=== PATIENT | female | born 1970 | race African-American/Black ===

== ENCOUNTER 2020-02-28 16:55 | Inpatient (IN) | payer OTHER ==
[~2020-02-28] VITALS: Ht 175.3 cm; Wt 80.7 kg
[2020-02-28 17:16] VITALS: BP 113/79
[2020-02-28 17:57] LABS: BASOPHILS 0.2 % (0.0-2.0); EOSINOPHILS 0.3 % (0.0-3.0); HEMATOCRIT 33.4 % (37.0-47.0); HEMOGLOBIN 10.6 gm/dL (12.0-15.0); MCH 21.1 pg (26.0-34.0); MCHC 31.7 g/dL (28.0-37.0); MCV 66.7 fL (80.0-100.0); MONOCYTES 10.7 % (1.0-8.0); PLATELET COUNT 225 thou/uL (150-400); POLYS 80.8 % (36.0-66.0); RBC 5.01 mil/uL (4.20-5.00); RDW 17.9 % (10.5-14.5); WBC 14.9 thou/uL (4.0-11.0)
[2020-02-28] MEDS ORDERED: NOHOMEMEDICATIONS (18:31)
[2020-02-28 18:32] LABS: ANION GAP 15 mmol/L (7-16); BUN 16 mg/dL (7-18); CALCIUM 10.4 mg/dL (8.5-10.1); CHLORIDE 99 mmol/L (98-107); CO2 22 mmol/L (21-32); CREATININE 0.8 mg/dL (0.6-1.0); GLUCOSE 103 mg/dL (74-106); POTASSIUM 3.4 mmol/L (3.5-5.1); SODIUM 136 mmol/L (136-145)
[2020-02-28 18:39] LABS: ALBUMIN 4.4 g/dL (3.4-5.0); SALICYLATE < 2.8 mg/dL (2.8-20.0); SGOT 24 U/L (15-37); SGPT 32 U/L (30-65); TOTAL BILIRUBIN 0.4 mg/dL (0.2-1.0); TOTAL PROTEIN 8.8 g/dL (6.4-8.2)
[2020-02-28 18:41] LABS: URINE BILIRUBIN NEGATIVE (Negative); URINE BLOOD TRACE (Negative); URINE CLARITY CLEAR; URINE COLOR YELLOW; URINE GLUCOSE-RANDOM* NEGATIVE (Negative); URINE KETONES NEGATIVE (Negative); URINE LEUKOCYTES-REFLEX 1+ (Negative); URINE NITRITE-REFLEX POSITIVE (Negative); URINE PROTEIN (DIPSTICK) TRACE (Negative)
[2020-02-28 18:43] LABS: ANISOCYTOSIS 1+; HYPOCHROMASIA 2+; MICROCYTES 2+
[2020-02-28 18:49] LABS: AMP/METHAMP POSITIVE (Negative); BARBITURATES Negative (Negative); BENZODIAZEPINES Negative (Negative); COCAINE Negative (Negative); METHADONE Negative (Negative); OPIATES Negative (Negative); PCP Negative (Negative)
[2020-02-28 19:02] LABS: SQUAMOUS >10 Many /LPF (0-3)
[2020-02-28 19:03] LABS: BACTERIA-REFLEX >30 Many /HPF (None Seen); CASTS None Seen /LPF (None Seen); CRYSTALS None Seen /LPF (None Seen); URINE RBC 0-2 Rare /HPF (0-2)
[2020-02-28 22:36] VITALS: BP 130/58
[2020-02-28 22:48] VITALS: BP 130/67
[2020-02-28 23:45] VITALS: BP 121/82
[2020-02-29] MEDS ORDERED: PROZAC20 M1 PO (00:08)
--- NOTE | 2020-02-29 03:10 | NUR ---
ASSUMED CARE OF PT AT 2330 FROM ED. PT IS AOX3 AND WAS ANXIOUS UPON ARRIVAL ON THE FLOOR. PT HAD URINARY URGENCY AND WAS INCT. PT WAS ORIENTED TO THE UNIT AND HER ROOM. SI PRECAUTIONS IN PLACE WITH 1:1 SITTER. PT WAS TACHYCARDIC AND HAD A TEMP OF 99.7. OTHER VSS. PT DENIES PAIN, NAUSEA OR SOA AT THE TIME OF ASSESSMENT. PT DENIES SI OR HI AT THE TIME OF ASSESSMENT. PT WAS ABLE TO ANSWER ALL ADMISSION RELATED QUESTIONS BUT INFORMATION MAY NOT BE ACCURATE PT MAY STILL BE DELUSIONAL. NO S/S OF ACUTE DISTRESS. WILL CONTINUE TO MONITOR.
[2020-02-29 04:08] VITALS: BP 123/72
[2020-02-29 06:10] LABS: HEMATOCRIT 29.7 % (37.0-47.0); HEMOGLOBIN 9.3 gm/dL (12.0-15.0); MCH 21.1 pg (26.0-34.0); MCHC 31.3 g/dL (28.0-37.0); MCV 67.5 fL (80.0-100.0); RBC 4.4 mil/uL (4.20-5.00); RDW 17.9 % (10.5-14.5); WBC 15.7 thou/uL (4.0-11.0)
[2020-02-29 06:25] LABS: CALCIUM 9.8 mg/dL (8.5-10.1); CREATININE 0.7 mg/dL (0.6-1.0); POTASSIUM 3.5 mmol/L (3.5-5.1)
--- NOTE | 2020-02-29 11:39 | NUR ---
INITIAL ASSESSMENT: Received consult. JALIL reviewed chart and spoke with nursing and attending physician. Pt was admitted from home due to SI/delusions. Pt placed in Enhanced Isolation to r/o COVID-19. Pt has 1:1 sitter at bedside. Awaiting psych consult. Per chart, pt has hx of bipolar disorder and has not been taking her meds. Pt is on IV abx. SW unable to speak with pt as she does not have a phone in her room. Pt does not have health insurance. No contacts listed for pt. JALIL is following to assist as needed with discharge planning.
[2020-02-29 15:39] VITALS: BP 109/66
--- NOTE | 2020-02-29 17:04 | NUR ---
PT REMIANS IN SI PRECAUTIONS. DR. LIVINGSTON CONSULTED ON PATIENT. PATIENT CONTINUES TO HAVE THOUGHTS OF SI. PARANOID AT TIMES. OTHERWISE RESTING IN BED COMFORTABLY AND VOICES NO NEEDS OR CONCERNS. NEW IV STARTED BY IV NURSE. DISCONTINUED ENHANCED PRECAUTIONS. PT WILL TRANSFER TO ROOM 207.
[2020-02-29 18:16] VITALS: BP 95/73
[2020-02-29 19:15] VITALS: BP 113/68
[2020-03-01 06:29] VITALS: BP 110/63
[2020-03-01 06:32] LABS: ABSOLUTE NEUTROPHILS 6.3 thou/uL (1.4-8.2); BASOPHILS 0.6 % (0.0-2.0); EOSINOPHILS 1.1 % (0.0-3.0); HEMATOCRIT 30.8 % (37.0-47.0); HEMOGLOBIN 9.6 gm/dL (12.0-15.0); LYMPHOCYTES 16.4 % (24.0-44.0); MCH 21.4 pg (26.0-34.0); MCHC 31.2 g/dL (28.0-37.0); MCV 68.5 fL (80.0-100.0); MONOCYTES 9.8 % (1.0-8.0); PLATELET COUNT 205 thou/uL (150-400); POLYS 72.1 % (36.0-66.0); RBC 4.49 mil/uL (4.20-5.00); RDW 17.8 % (10.5-14.5); WBC 8.7 thou/uL (4.0-11.0)
[2020-03-01 07:17] VITALS: BP 110/67
--- NOTE | 2020-03-01 07:42 | EKG ---
[facility] [place] [address] ELECTROCARDIOGRAM REPORT Name: TRAE SPENCE Room #: 207-P ADM IN M.R.#: [id number] Admission: 02/28/20 Attend Phys: Kamari Zaman MD Discharge: Date of : 68 Report #: [id number] THIS REPORT FOR: cc: SPENCER - Pauline family physician/PCP SPENCER - No family physician/PCP Padilla Conway MD [facility] ~ THIS REPORT FOR: //name// [facility] Test Date: 2020-02-29 Test Time: 19:43:40 Pat Name: TRAE SPENCE Department: Room: [facility] 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
--- NOTE | 2020-03-01 11:35 | NUR ---
JALIL reviewed chart and spoke with nursing, attending physician and psychiatrist. Pt was transferred to CCU from 3. Pt has 1:1 sitter at bedside due to SI/psychosis. Recommendation made for pt to be transferred to inpt psych when medically stable. Pt has been febrile and is on IV abx. Repeat COVID test ordered today. JALIL met with pt at bedside. Introduced role of SW. Pt is alert/orientated. SW discussed discharge to inpt psych facility with pt. Pt is agreeable with plan and states she has not been anywhere in the past for inpt treatment. Pt asks that her family not be contacted or updated. No family or contacts listed for pt. SW to send referrals to inpt psych facilities when pt is medically stable for transfer. [facility] has taken a Medicaid application and will submit on pt's behalf. JALIL is following to assist as needed with discharge planning.
[2020-03-01 13:30] VITALS: BP 120/75
[2020-03-01 15:27] VITALS: BP 133/77
--- NOTE | 2020-03-01 17:58 | NUR ---
ASSESSMENT DOCUMENTED, AND REMAIND ON SI PRECAUTIONS. LOW GRADE FEVER, AND OTHER VSS. ST WITH ACTIVITIES. PATIENT PULLED IV OUT, AND STATED THAT THE BAD SPIRITS ARE BOTHERING HER. IN BED SLEEP MOST OF THE DAY. AND WILL COTNINUE WITH POC.
[2020-03-01 19:53] VITALS: BP 110/54
[2020-03-02 04:25] VITALS: BP 103/63
--- NOTE | 2020-03-02 05:14 | NUR ---
ASSESSMENT DOCUMENTED.PT BEEN RESTING IN NO ACUTE DISTRESS.A/OX4.VSS,TACHYCARDIAC W/ACTIVITIES W/O SHORTNESS OF BREATH.PT HAS FREQUENT PRODUCTIVE COUGH.REFUSED COVID TEST STATING SHE ALREADY HAD TWO TEST AND SHE IS NOT GOING TO DO IT AGAIN.EDUCATED ON IMPORTANCE OF PERFORMING THE TEST,ACKNOWLEDGE IT BUT STILL DECLINED.WILL TRY AGAIN TODAY.SI PRECAUTION INPLACE,SITTER IN THE ROOM.NO OTHER CONCERNS NOTED OR REPORTED.
[2020-03-02 08:10] LABS: BASOPHILS 0.6 % (0.0-2.0); EOSINOPHILS 1.4 % (0.0-3.0); HEMATOCRIT 31.7 % (37.0-47.0); HEMOGLOBIN 10.1 gm/dL (12.0-15.0); LYMPHOCYTES 19.1 % (24.0-44.0); MCH 21.4 pg (26.0-34.0); MCHC 31.8 g/dL (28.0-37.0); MCV 67.3 fL (80.0-100.0); MONOCYTES 11.3 % (1.0-8.0); PLATELET COUNT 270 thou/uL (150-400); POLYS 67.6 % (36.0-66.0); RBC 4.71 mil/uL (4.20-5.00); RDW 17.9 % (10.5-14.5); WBC 5.9 thou/uL (4.0-11.0)
[2020-03-02 08:18] VITALS: BP 107/73
[2020-03-02 12:00] LABS: ANISOCYTOSIS 1+; HYPOCHROMASIA 2+; MICROCYTES 1+; PLATELET ESTIMATE NORMAL
[2020-03-02 12:25] VITALS: BP 112/75
--- NOTE | 2020-03-02 13:59 | NUR ---
SW reviewed chart and spoke with attending physician and psychiatrist. Pt is medically stable for transfer to an inpt psych facility. Pt has 1:1 sitter at bedside. JALIL contacted various inpt psych facilities: [facility]: spoke with Babak in bed placement. Faxed info for review. [facility]: Faxed info for review. No beds currently available. [facility]: Faxed info for review. No beds currently available. [facility]: Faxed info for review. [facility]: Not accepting any referrals at this time per Winnie in intake. [facility] [place]: Spoke with Mony in intake. Faxed info for review [facility] in [place]: left voice message on bed placement pager. [facility]: No beds available. JALIL is follwoing to assist as needed [facility] discharge planning.
[2020-03-02 16:15] VITALS: BP 128/82
--- NOTE | 2020-03-02 17:50 | NUR ---
ASSUMED CARE AT SHIFT CHANGE, VSS AND AFEBRILE. TACHYCARDIAC WITH AMBULATION, AND DENIES ANY SOB. NO SI VERBALIZED BY PATIENT, 1:[address] FOR SAFETY AND WILL CONTINUE TO MONITOR PATIENT.
[2020-03-02 19:23] VITALS: BP 115/69
[2020-03-03 04:43] VITALS: BP 102/58
--- NOTE | 2020-03-03 04:50 | NUR ---
PT RESTING QUIETLY THROUGH SHIFT, REMAINS ON RA WITH COARSE COUGH, VSS, NO C/O PAIN, NO IV ACCESS, SITTER AT BEDSIDE OFFERING 1:1 SUPERVISION,
--- NOTE | 2020-03-03 05:33 | NUR ---
PT RESTING QUIETLY IN BED THRU THE NOC, VSS, HR ELEVATED WITH ACTIVITY, NO C/O PAIN, UP ADLIB TO BR, SITTER PROVIDING 1:1 CARE AT BEDSIDE, WILL CON'T TO MONITOR PER PPOC.
[2020-03-03 07:18] VITALS: BP 102/71
--- NOTE | 2020-03-03 13:04 | NUR ---
cm f/u with [facility]; referral still pending review cm sent clinicals to [facility], as they may have a bed avail later today.
[2020-03-03 13:45] VITALS: BP 128/83
--- NOTE | 2020-03-03 15:06 | NUR ---
pt's bedside rn, richa, informed cm that [facility] called and has denied pt.
--- NOTE | 2020-03-03 16:50 | NUR ---
SW reviewed chart. Pt remains medically stable for transfer to an inpt psych facility. SW contacted [facility] facilities: [facility]: Declined pt for admission [facility]: Spoke with Kristin. Pt has been declined. [facility]: Spoke with Layne and faxed info for review. ( ) [facility]: Paged bed coordinator ([phone]) [facility]: Spoke with Kristin. Not accepting pts today. Requested call on Friday to check status ( ) [facility]: Spoke with Mary. Faxed info for review. ( ) [facility]: left voice message for bed coordinater (PHone: [phone]) [facility]: Spoke with Carlotta. No beds available at the current time. Requested to check bed status later this evening or tomorrow. ( ) [facility]: Not accepting any new referrals until midnight. ( FaxL [phone]) [facility]: Not accepting adults in their behavioral health unit at this time. [facility]: Not accepting any referrals/admissions until Friday. Affidavit is on pt's chart. Will need chart copied once pt has been accepted to a facility. [facility] and EMTALA form placed on pt's chart. SW is following to assist as needed with discharge planning.
--- NOTE | 2020-03-03 18:16 | NUR ---
ASSUMED CARE PT SHIFT CHANGE. ASSESSMENT CHARTED. PT ALERT, ORIENTED. SITTER IN ROOM WITH PT DURING SHIFT. PT REMAINED CALM. DENIES PAIN. PT UP TO BATHROOM TOLERATING WELL. HR ELEVATED WITH ACTVITY AND AT REST. PHYSICIAN NOTIFIED. ORDERS RECEIVED. PT AFEBRILE, ENCOURAGED PT TO DRINK FLUIDS PER CARDIOLOGY RECOMMENDATION. HOSPITALIST NOTIFIED NO NEW ORDERS RECEIVED. PT CURRENTLY RESTING IN BED WITH SITTER IN ROOM. WILL CONT TO MONITOR. WILL PASS ON REPORT TO ANGE RN.
[2020-03-03 18:46] LABS: CALCIUM 10.3 mg/dL (8.5-10.1); CREATININE 0.7 mg/dL (0.6-1.0); POTASSIUM 3.9 mmol/L (3.5-5.1)
[2020-03-03 20:15] VITALS: BP 142/87
--- NOTE | 2020-03-04 04:49 | NUR ---
Assumed pt care at 1900. Pt is alert and oriented. Pt is a sucidial patient. Sitter present in room. Pt is stable. Pt at the beginning of the shift had some delusional episode. No aggressive behavior. Assessment completed and documented. Scheduled meds administered to pt. Continue to monitor. No acute events. No further needs at this time.
[2020-03-04 05:24] VITALS: BP 110/75
[2020-03-04 07:35] VITALS: BP 100/66
[2020-03-04 08:21] LABS: ABSOLUTE NEUTROPHILS 3.6 thou/uL (1.4-8.2); BASOPHILS 0.8 % (0.0-2.0); EOSINOPHILS 1.9 % (0.0-3.0); HEMATOCRIT 36.5 % (37.0-47.0); HEMOGLOBIN 11.4 gm/dL (12.0-15.0); LYMPHOCYTES 22.2 % (24.0-44.0); MCH 21.2 pg (26.0-34.0); MCHC 31.4 g/dL (28.0-37.0); MCV 67.6 fL (80.0-100.0); MONOCYTES 11.2 % (1.0-8.0); POLYS 63.9 % (36.0-66.0); RDW 18.6 % (10.5-14.5); WBC 5.7 thou/uL (4.0-11.0)
[2020-03-04 08:35] LABS: PLATELET COUNT 373 thou/uL (150-400)
[2020-03-04 08:36] LABS: ALBUMIN 2.9 g/dL (3.4-5.0); CALCIUM 10.5 mg/dL (8.5-10.1); CREATININE 0.6 mg/dL (0.6-1.0); POTASSIUM 4.1 mmol/L (3.5-5.1); TOTAL BILIRUBIN 0.2 mg/dL (0.2-1.0); TOTAL PROTEIN 7.9 g/dL (6.4-8.2)
--- NOTE | 2020-03-04 09:29 | EKG ---
[facility] [place] [address] ELECTROCARDIOGRAM REPORT Name: TRAE SPENCE Room #: 207-P ADM IN M.R.#: [id number] Admission: 02/28/20 Attend Phys: Kamari Zaman MD Discharge: Date of : 68 Report #: [id number] THIS REPORT FOR: cc: SPENCER Carpenter family physician/PCP SPENCER Carpenter family physician/PCP Dwayne Rizzo MD [facility] THIS REPORT FOR: //name// [facility] Test Date: 2020-03-03 Test Time: 18:16:37 Pat Name: TRAE SPENCE Department: Room: 207 P Gender: F Clinic Manager: SYKLAR : 1970 Requested By: Kamari Zaman Order Number: [id number] MD: Dwayne Rizzo Measurements Intervals [place] Rate: 109 P: 70 OR: 168 QRS: 71 QRSD: 83 T: 40 QT: 310 QTc: 418 Interpretive Statements Sinus tachycardia Compared to ECG 02/29/2020 19:43:40 No significant changes Electronically Signed On 03-04-2020 9:29:27 CDT by Dwayne Rizzo [email or web address] <ELECTRONICALLY SIGNED> By: Dwayne Rizzo MD, FACC 03/04/20 0929 15 15 Dwayne Rizzo MD, [facility] /EPI
[2020-03-04 15:08] VITALS: BP 96/64
--- NOTE | 2020-03-04 17:52 | NUR ---
ASSESSMENTS AND INTERVENTIONS DOCCUMENTED. NO MAJOR CONCERNS THIS SHIFT. PATIENT RESTING THROUGH OUT SHFIT. PATIENT WONDERING WHEN SHE WILL BE DISCHARGED. RN DISCUSSING WITH PATIENT THAT CASE MANAGEMENT IS AWAITIING PLACEMENT FOR PSYCH FACIILLITY. PATIENT IS PROGRESSING TOWARDS GOALS AT THIS TIME EVIDENCE BY REMAINING CALM THROUGH OUT SHIFT WITH NO COMPLAINTS OF HALUCINATIONS.
[2020-03-04 20:23] VITALS: BP 107/64
--- NOTE | 2020-03-05 03:39 | NUR ---
Assumed pt care at 1900. Pt is alert. No sign of distress noted. Sitter at bedside. Denies any needs. Assessment completed and documented. Pt s is stable throughout the night. Denies any pain. Scheduled meds administered to pt. No acute events overnight. Pendign placement. Continue to monitor. No further needs at this time.
[2020-03-05 06:20] VITALS: BP 100/64
[2020-03-05 08:52] VITALS: BP 95/63
--- NOTE | 2020-03-05 09:40 | NUR ---
RESTING, AWAKENS EASILY. DENIES ANY DELUSIONS, HEARING VOICES, HALLUCINATIONS AT THIS TIME. DENIES THOUGHTS OF HURTING OR HARMING HERSELF. PER PHYSICIAN DR. LIVINGSTON, PT TO BE TRANSFERRED TO INPATIENT PSYCH FACILITY AND NOT TO GO HOME. CONTINUING WITH 1:1 SITTER FOR SUICIDIAL IDEATION FOR PT SAFETY.
--- NOTE | 2020-03-05 10:40 | NUR ---
REPORT GIVEN TO DWAIN LAIRD ON 4TH FLOOR. PT TRANSFERRING TO ROOM #457.
--- NOTE | 2020-03-05 11:37 | NUR ---
TRANSFERRED TO FLOOR PER BED WITH ASSISTANCE OF TECH.
--- NOTE | 2020-03-05 12:42 | NUR ---
Received pt from [address] [place] [address], pt has no IV and as per nurse this was not indicated and MD aware, though no documentation from any MD is documented, informed attending MD today. Was advised by the nurse as well that pt has a backpack at the ER that has not been brought up and accounted for. I called security to keep the backpack since pt is on SI and no belongings are to be kept in the room as per protocol since pt is on SI and has a sitter, pt is aware where the backpack is and to retrieve this upon DC, note is placed at the front of the chart as well. Denies any ahllucinations and delusions at this time, is aware of why she is here and mentioned she is fine now and is conlvinced that she will be going home tomorrow. Currently on 1:1 with a sitter. VS stable, POC followed witn no signs or verbalizations of distress.
[2020-03-05 17:55] VITALS: BP 106/72
[2020-03-05 19:11] VITALS: BP 109/71
--- NOTE | 2020-03-06 02:33 | NUR ---
ASSUMED CARE OF PT AT 1900. PT IS A/O X4 AND IS UP WITH SBA WITH SITTER AT BEDSIDE. PT DENIES ANY C/O HALLUCINATIONS OR DELUSIONS AT THIS TIME. VSS. AFEBRILE. NO C/O PAIN OR DISCOMFORT. PT IS CURRENTLY LYING IN HER BED AND APPEARS TO BE SLEEPING. SUICIDE PRECAUTIONS IN PLACE. WILL CONTINUE TO MONITOR.
--- NOTE | 2020-03-06 08:59 | NUR ---
Assess due to length of stay. Admit with SI, pneumonia, sepsis. +for hallucinations, delusions, followed by psych. Eating >75% meals, no reported wt loss. Awaiting inpatient psych bed for discharge. Low nutrition risk
[2020-03-06 10:49] VITALS: BP 130/82
--- NOTE | 2020-03-06 17:05 | NUR ---
PT A&OX4, VSS, DENIES PAIN. PATIENT CONTINUES TO HAVE SI/HI AND HALLUCINATIONS. PATIENT HAS SITTER. NO SIGNS OF DISTRESS. WILL CONTINUE TO MONITOR.
[2020-03-06 17:42] VITALS: BP 118/72
[2020-03-06 19:43] VITALS: BP 103/62
--- NOTE | 2020-03-07 05:57 | NUR ---
Assumed pt care at 1900. Pt A/OX4,VSS. Denied pain on assessment, pt had an episode of large emesis per sitter but declined need for medication stated she felt better afterwards. Denies SI/HI,mood changes noted on and off when conversing. Sitter at the bedside for safety. Will continue to monitor pt.
[2020-03-07 07:15] VITALS: BP 106/67
[2020-03-07 10:53] LABS: HEMATOCRIT 33.4 % (37.0-47.0); HEMOGLOBIN 10.5 gm/dL (12.0-15.0); MCH 21.4 pg (26.0-34.0); MCHC 31.3 g/dL (28.0-37.0); MCV 68.3 fL (80.0-100.0); RBC 4.88 mil/uL (4.20-5.00); RDW 18.6 % (10.5-14.5); WBC 4.8 thou/uL (4.0-11.0)
[2020-03-07 11:06] LABS: CALCIUM 10.1 mg/dL (8.5-10.1); CREATININE 0.6 mg/dL (0.6-1.0); POTASSIUM 3.8 mmol/L (3.5-5.1)
--- NOTE | 2020-03-07 11:17 | NUR ---
patient a/ox4, no complaints of pain, cough, nausea or vomiting as previously seen with patient. vital signs are stable and patient is resting. She has SI precautions in place and has a sitter at bedside. Chest XR performed this morning, lab leny blood, urine analysis to be collected. patient states her doctor is sending her home today, but we are looking for placement for inpatient psychiatric stay. pt belongings with security. pt watching tv and laying supine most of morning.
--- NOTE | 2020-03-07 11:58 | NUR ---
I have reviewed the student's documentation.
--- NOTE | 2020-03-07 13:30 | NUR ---
[facility]: Declined pt for admission [facility]: Spoke with Kristin. Pt has been declined. [facility]: Spoke with Layne and faxed info for review. ( ) called 03/07 faxed referral again this afternoon [facility]: Paged bed coordinator ([phone]) called 1:19 [facility]: ( ) CALLED THEY ARE AT CAPACITY 1:36 [facility]: Spoke with ANGELA Faxed OVER UPDATED LABS. ( ) [facility]: left voice message for bed coordinater (PHone: [phone]) [facility]: CALLED AT 1:23 No beds available at the current time. Requested to check bed status later this afternoon. ( ) [facility]: DECLINED 03/06 ( ) [facility]: Not accepting adults in their behavioral health unit at this time. [facility]: CALLED 1:[address]ER[address] CM UPDATED DR. LIVINGSTON. CM TO FOLLOW INDICATED WITH DC PLANNING.
[2020-03-07 14:30] VITALS: BP 118/52
[2020-03-07] MEDS ORDERED: OLANZAPINE ODT5 MG PO (17:03)
[2020-03-07 17:35] VITALS: BP 106/67
--- NOTE | 2020-03-07 20:24 | NUR ---
Received awake on bed. Due medications given as prescribed. On MS, not on telemetry; no complains of chest pain, crushing sensation and heaviness. On room air. Vital signs stable. On regular diet, tolerating well; no nausea, no vomiting and no abdominal pain noted. Continent of bowel and bladder, able to go to the toilet. No IV noted. Up ad tank. Assisted in ADLs. Still a/w inpatient psych. With sitter at bedside; suicide protocol observed. Pt seen and examined by Dr Smith- CBC, BMP, chest xray and urinalysis ordered- a/w specimen to be obtained. Pt seen and examined by Dr Michaud at 1730- discharge orders made. Discharge instructions, follow up schedule, contact numbers and prescription given and instructed. No IV noted. supervisor functional testing informed re: cab voucher. Sitter went down with patient to claim belongings from security and also facilitate cab voucher. Pt discharged from the unit via wheelchair with her personal belongings. Discharged patient.
== END 2020-03-07 18:35 | disposition home or self-care (01) | DRG 871 ==
LOC: ER 16:55 → EROBS 22:04 → 3W 22:04 → 2N 02-29 17:55 → 4W 03-05 11:21
PROVIDERS: Internal Medicine; Nurse Practitioner Family; Physician Assistant; Psychiatry & Neurology Psychiatry; ADMIT Hospitalist; ATTEND Hospitalist
DX: A41.9 Sepsis, unspecified organism (principal); J18.9 Pneumonia, unspecified organism; N39.0 Urinary tract infection, site not specified; R45.851 Suicidal ideations; B96.20 Unspecified Escherichia coli [E. coli] as the cause of diseases classified elsewhere; F12.10 Cannabis abuse, uncomplicated; F15.10 Other stimulant abuse, uncomplicated; F99 Mental disorder, not otherwise specified; F31.9 Bipolar disorder, unspecified; G89.29 Other chronic pain; F41.9 Anxiety disorder, unspecified; F17.210 Nicotine dependence, cigarettes, uncomplicated; Z20.828 Contact with and (suspected) exposure to other viral communicable diseases; Z79.899 Other long term (current) drug therapy; Z88.0 Allergy status to penicillin
CPT/HCPCS: 10047; 10081; 10879

== ENCOUNTER 2020-03-26 02:01 | Emergency (ER) | payer OTHER ==
[~2020-03-26] VITALS: Ht 175.3 cm; Wt 81.7 kg
--- NOTE | ~2020-03-26 | EMS ---
[address] [address] EMS Patient Care Report Name: TRAE SPENCE Room #: PRE M.R.#: [id number] Admission: Attend Phys: Discharge: Date of : 68 Report #: [id number] THIS REPORT FOR: //name// Report Transmitted: 03/26/2020 01:57 EMS Care Summary [place], [place] Incident [id number] @ 03/26/2020 01:36 Incident Location [address] [place] [address] Patient PASAH SPENCE Female, 49 Years 1970 Patient Address [address] [place] [address] Patient History Hypertension (HTN), Patient Allergies No known allergies, Patient Medications None Reported, Chief Complaint SHORTNESS OF BREATH Disposition Transported No Lights/Kaycee Dispatch Reason Breathing Problem Transported To [facility] Narrative DISPATCHED EMERGENCY TO THE SCENE OF A REPORTED BREATHING PROBLEM. UPON ARRIVAL, FOUND PATIENT SITTING OUTSIDE THE BUSINESS, ALERT AND ORIENTED X4, COMPLAINING OF DIFFICULTY BREATHING. PATIENT STATES SHE WAS DIAGNOSED WITH PNEUMONIA A WEEK AGO AND IS UNABLE TO AFFORD HER MEDICATION. PATIENT DENIES [address] [address] EMS Patient Care Report Name: TRAE SPENCE Room #: PRE Johnny.#: [id number] Admission: Attend Phys: Discharge: Date of : 68 Report #: [id number] ANY CHEST PAIN. PATIENT PRESENTS WITHOUT LABORED BREATHING. PATIENT IS ASSISTED TO THE AMBULANCE, LOADED TO THE COT, AND SECURED. VITAL SIGNS ASSESSED. LUNG SOUNDS CLEAR. PATIENT TRANSPORTED IN A POSITION OF COMFORT TO [facility] WITHOUT INCIDENT OR CHANGE IN CONDITION. VITAL SIGNS MONITORED DURING TRANSPORT. PATIENT CARE TRANSFERRED TO ED STAFF. Initial Vitals @01:50P: 70,R: 18,BP: 184/90,Pain: 0/10,GCS: 15,SpO2: 97,Revised Trauma: 12, @01:55P: 80,R: 18,BP: 136/74,Pain: 0/10,GCS: 15,SpO2: 97,Revised Trauma: 12, Assessments @01:46MENTAL:Person Oriented,Time Oriented,Place Oriented,Event Oriented,SKIN:HEENT:Head/Face: No Abnormalities,Neck/Airway: No Abnormalities,LUNG SOUNDS:General: No Abnormalities,ABDOMEN:General: No Abnormalities,PELVIS//GI:No Abnormalities,EXTREMITIES:Capillary Refill: Right Upper: < 2 Sec,Left Arm: No Abnormalities,Right Arm: No Abnormalities,Left Leg: No Abnormalities,Right Leg: No Abnormalities,PULSE:Radial: 2+ Normal,NEURO:No Abnormalities, Impression Shortness of breath Procedures @01:46ALS AssessmentResponse: UnchangedSucceeded Timeline 01:35,Call Received 01:35,Dispatch Notified 01:36,Dispatched 01:38,En Route 01:44,On Scene 01:46,At Patient 01:46,ALS Assessment,Response: UnchangedSucceeded, 01:50,BP: 184/90 M,PULSE: 70,RR: 18 R,SPO2: 97 Ox,ETCO2: ,BG: ,PAIN: 0,GCS: 15, 01:52,Depart Scene 01:55,BP: 136/74 M,PULSE: 80,RR: 18 R,SPO2: 97 Ox,ETCO2: ,BG: ,PAIN: 0,GCS: 15, 01:58,At Destination 02:07,Call Closed Disclaimer v1.1 Copyright 2020 [employer] This EMS Care Summary contains data elements from the applicable legal record (which may be displayed differently). It is designed to provide pertinent information for the following purposes: continuity of care, clinical quality, and state data reporting. The complete legal record is available to ED staff and administrators of the receiving hospital in [employer] Patient Tracker. All data [facility] [address] [place] [address] EMS Patient Care Report Name: TRAE SPENCE Room #: [facility] KT Mitchell#: [id number] Admission: Attend Phys: Discharge: Date of : 68 Report #: [id number] is provided "as is."
[~2020-03-26 02:01] MED LIST: NOHOMEMEDICATIONS; OLANZAPINE ODT5 MG PO; PROZAC20 M1 PO
[2020-03-26 02:55] LABS: ABSOLUTE NEUTROPHILS 5.6 thou/uL (1.4-8.2); BASOPHILS 0.6 % (0.0-2.0); EOSINOPHILS 0.7 % (0.0-3.0); HEMOGLOBIN 9.9 gm/dL (12.0-15.0); LYMPHOCYTES 15.5 % (24.0-44.0); MCH 21.6 pg (26.0-34.0); MCV 69.6 fL (80.0-100.0); MONOCYTES 8.5 % (1.0-8.0); PLATELET COUNT 228 thou/uL (150-400); POLYS 74.7 % (36.0-66.0); RBC 4.59 mil/uL (4.20-5.00); RDW 20.9 % (10.5-14.5); WBC 7.6 thou/uL (4.0-11.0)
[2020-03-26 02:58] LABS: CALCIUM 9.9 mg/dL (8.5-10.1); CREATININE 0.7 mg/dL (0.6-1.0); POTASSIUM 3.8 mmol/L (3.5-5.1)
[2020-03-26 03:03] LABS: ALBUMIN 3.3 g/dL (3.4-5.0); TOTAL BILIRUBIN 0.3 mg/dL (0.2-1.0); TOTAL PROTEIN 7.2 g/dL (6.4-8.2)
[2020-03-26] MEDS ORDERED: ZITHROMAX250 MG PO (03:30)
[2020-03-26 03:39] LABS: ANISOCYTOSIS 2+; HYPOCHROMASIA 2+; MICROCYTES 2+; POLYCHROMASIA 1+
[2020-03-26 03:45] VITALS: BP 130/89
--- NOTE | 2020-03-26 11:19 | EKG ---
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1970 Requested By: Mario Osborne Order Number: [id number] MD: Alexis Gonzalez Measurements Intervals [place] Rate: 67 P: 63 [place]: 194 QRS: 79 QRSD: 90 T: 60 QT: 383 QTc: 405 Interpretive Statements Sinus rhythm Anteroseptal infarct, age indeterminate Compared to ECG 03/03/2020 18:16:37 Myocardial infarct finding now present Sinus tachycardia no longer present Electronically Signed On 03-26-2020 11:19:18 CDT by Alexis Gonzalez [email or web address] <ELECTRONICALLY SIGNED> By: Alexis Gonzalez MD 03/26/20 1119 0255 0255 Alexis Gonzalez MD /EPI
== END 2020-03-26 03:33 | disposition home or self-care (01) ==
LOC: ER 02:01
PROVIDERS: Emergency Medicine
DX: J18.9 Pneumonia, unspecified organism (principal); G89.29 Other chronic pain; M54.9 Dorsalgia, unspecified; F17.210 Nicotine dependence, cigarettes, uncomplicated; Z79.899 Other long term (current) drug therapy; Z88.0 Allergy status to penicillin

== ENCOUNTER → 2020-07-14 | Emergency (ER) | payer OTHER ==
[~2020-07-14] VITALS: Ht 175.3 cm; Wt 81.7 kg
[~2020-07-14] MED LIST changes: +TRAMADOL 50 MG50 MG PO; +ZITHROMAX250 MG PO
[2020-07-14 15:09] VITALS: BP 137/89
== END ==
LOC: ER 13:12
DX: S82.62XA Displaced fracture of lateral malleolus of left fibula, initial encounter for closed fracture (principal); G89.29 Other chronic pain; F17.210 Nicotine dependence, cigarettes, uncomplicated; Z79.2 Long term (current) use of antibiotics; Z88.0 Allergy status to penicillin; X50.1XXA Overexertion from prolonged static or awkward postures, initial encounter; Y93.89 Activity, other specified; Y92.89 Other specified places as the place of occurrence of the external cause; Y99.9 Unspecified external cause status

== ENCOUNTER 2021-03-22 00:23 | Emergency (ER) | payer OTHER ==
[~2021-03-22] VITALS: Ht 175.3 cm; Wt 81.7 kg
--- NOTE | ~2021-03-22 | EMS ---
[address] [address] EMS Patient Care Report Name: TRAE SPENCE Room #: DEP KT Mitchell#: [id number] Admission: 03/22/21 Attend Phys: Discharge: 03/22/21 Date of : 68 Report #: [id number] THIS REPORT FOR: //name// Report Transmitted: 03/26/2021 08:33 EMS Care Summary [place], [place]/[facility] Incident [id number] @ 03/21/2021 23:54 Incident Location [address] [place], [place] [id number] Patient PASHA SPENCE Female, 50 Years 1970 Patient Address [address] [place], [place] [id number] Patient History None Reported, Patient Allergies No known allergies, Patient Medications None Reported, Chief Complaint RIGHT LEG PAIN Disposition Transported No Lights/[place] Dispatch Reason Sick Person Transported To [facility] Narrative MEDIC 41 WAS REQUESTED TO STAGE BY [employer]. EMS GOT THE CLEAR TO ENTER THE SCENE, UPON ARRIVAL EMS SAW PT WITH PD STANDING OUTSIDE OF A GAS STATION. PT WAS STATING THEY HAD LEG PAIN AND HAD FALLEN AT THE BUS EARLIER TODAY. PT DENIES LOC AND DENIES HEAD NECK OR BACK PAIN. PT WAS ASSISTED TO THE [address] [address] EMS Patient Care Report Name: TRAE SPENCE Room #: DEP ER Paula#: [id number] Admission: 03/22/21 Attend Phys: Discharge: 03/22/21 Date of : 68 Report #: [id number] AMBULANCE. IN THE AMBULANCE PT WAS GIVEN A MASK, AND WAS BUCKLED INTO THE COT. VITALS WERE GATHERED, PT IS ABLE TO MOVE RIGHT LEG, CSM NOTED. PT REMAINED STABLE THROUGHTOUT TRANSPORT. REPORT WAS GIVEN TO RN AT [facility]. MEDIC 41 BACK IN SERVICE. MARYAN MCKEE EMTB. Initial Vitals @00:11P: 75,R: 16,BP: 133/88,Pain: 0/10,GCS: 15,SpO2: 100,Revised Trauma: 12, @00:29P: 65,R: 16,BP: 123/85,Pain: 0/10,GCS: 15,SpO2: 100,Revised Trauma: 12, Assessments @00:04MENTAL:Time Oriented,Person Oriented,Place Oriented,Event Oriented,SKIN:HEENT:Head/Face: No Abnormalities,LUNG SOUNDS:General: No Abnormalities,Left Upper: No Abnormalities,Right Upper: No Abnormalities,Left Lower: No Abnormalities,Right Lower: No Abnormalities,ABDOMEN:General: No Abnormalities,Left Upper: No Abnormalities,Right Upper: No Abnormalities,Left Lower: No Abnormalities,Right Lower: No Abnormalities,PELVIS//GI:No Abnormalities,EXTREMITIES:Capillary Refill: Left Upper: < 2 Sec,Right Leg: Weakness,Left Arm: No Abnormalities,Right Arm: No Abnormalities,Left Leg: No Abnormalities,PULSE:Radial: 2+ Normal,NEURO:No Abnormalities, Impression Extremity Pain Procedures @00:34 BLS Assessment Response: Unchanged @00:34 ALS Assessment Response: UnchangedSucceeded Timeline 23:51,Dispatch Notified 23:54,Dispatched 23:55,En Route 00:03,On Scene 00:03,At Patient 00:11,Depart Scene 00:11,BP: 133/88 M,PULSE: 75,RR: 16 R,SPO2: 100 Ox,ETCO2: ,BG: ,PAIN: 0,GCS: 15, 00:29,BP: 123/85 M,PULSE: 65,RR: 16 R,SPO2: 100 Ox,ETCO2: ,BG: ,PAIN: 0,GCS: 15, 00:30,At Destination 00:34,BLS Assessment,Response: Unchanged 00:34,ALS Assessment,Response: UnchangedSucceeded, [facility] [address] [place] [address] EMS Patient Care Report Name: BEBETRAE Room #: [facility]P [facility] [id number] Admission: 03/22/21 Attend Phys: Discharge: 03/22/21 Date of : 68 Report #: [id number] 00:45,Call Closed 23:51,Call Received Disclaimer v1.1 Copyright 2020 [employer] This EMS Care Summary contains data elements from the applicable legal record (which may be displayed differently). It is designed to provide pertinent information for the following purposes: continuity of care, clinical quality, and state data reporting. The complete legal record is available to ED staff and administrators of the receiving hospital in [facility]'s Patient Tracker. All data is provided "as is."
[2021-03-22 01:55] LABS: ABSOLUTE NEUTROPHILS 3.4 thou/uL (1.4-8.2); BASOPHILS 1.1 % (0.0-2.0); EOSINOPHILS 2.1 % (0.0-3.0); LYMPHOCYTES 30.3 % (24.0-44.0); MCHC 32.5 g/dL (28.0-37.0); MCV 82.9 fL (80.0-100.0); MONOCYTES 9.8 % (1.0-8.0); PLATELET COUNT 69 thou/uL (150-400); POLYS 56.7 % (36.0-66.0); RBC 4.83 mil/uL (4.20-5.00); RDW 14.7 % (10.5-14.5); WBC 6.5 thou/uL (4.0-11.0)
[2021-03-22 02:01] LABS: ANION GAP 9 mmol/L (7-16); BUN 19 mg/dL (7-18); CALCIUM 10.6 mg/dL (8.5-10.1); CHLORIDE 107 mmol/L (98-107); CO2 26 mmol/L (21-32); CREATININE 0.6 mg/dL (0.6-1.0); GLUCOSE 99 mg/dL (74-106); POTASSIUM 3.9 mmol/L (3.5-5.1); SODIUM 142 mmol/L (136-145)
[2021-03-22 02:07] LABS: AMP/METHAMP POSITIVE (Negative); BARBITURATES Negative (Negative); BENZODIAZEPINES Negative (Negative); COCAINE Negative (Negative); METHADONE Negative (Negative); OPIATES Negative (Negative); PCP Negative (Negative)
[2021-03-22 02:19] LABS: SALICYLATE < 2.8 mg/dL (2.8-20.0)
[2021-03-22 05:04] VITALS: BP 137/86
== END 2021-03-22 05:04 | disposition home or self-care (01) ==
LOC: ER 00:23
PROVIDERS: Student in an Organized Health Care Education/Training Program
DX: T43.622A Poisoning by amphetamines, intentional self-harm, initial encounter (principal); Z20.822 Contact with and (suspected) exposure to COVID-19; F41.9 Anxiety disorder, unspecified; F32.9 Major depressive disorder, single episode, unspecified; F17.210 Nicotine dependence, cigarettes, uncomplicated; Z88.0 Allergy status to penicillin; Y92.89 Other specified places as the place of occurrence of the external cause

== ENCOUNTER 2021-04-01 08:19 | Emergency (ER) | payer OTHER ==
[~2021-04-01] VITALS: Ht 175.3 cm; Wt 86.2 kg
[2021-04-01 08:19] VITALS: BP 146/92
== END 2021-04-01 09:54 | disposition home or self-care (01) ==
LOC: ER 08:19
DX: J06.9 Acute upper respiratory infection, unspecified (principal); R05.9 Cough, unspecified; R09.81 Nasal congestion; F41.9 Anxiety disorder, unspecified; F32.9 Major depressive disorder, single episode, unspecified; F17.210 Nicotine dependence, cigarettes, uncomplicated; F12.90 Cannabis use, unspecified, uncomplicated; Z88.0 Allergy status to penicillin; Z91.09 Other allergy status, other than to drugs and biological substances